=== PATIENT | female | born 1990 | race Caucasian/White ===

== ENCOUNTER 2021-12-24 11:18 | Emergency (ER) | payer SELFPAY ==
[~2021-12-24] VITALS: Ht 154.9 cm; Wt 68.9 kg
[2021-12-24 11:24] VITALS: BP 148/85
[2021-12-24 12:18] LABS: BASOPHILS # (AUTO) 0.1 K/uL (0.00-0.22); BASOPHILS % (AUTO) 0.9 % (0.0-2.0); EOSINOPHILS % (AUTO) 0.7 % (0.0-4.0); HEMATOCRIT 38.9 % (36-48); LYMPHOCYTES # (AUTO) 2.5 K/uL (2.5-16.5); LYMPHOCYTES % (AUTO) 39.6 % (20.5-51.1); MEAN CORPUSCULAR HEMOGLOBIN 29 pg (27-31); MEAN CORPUSCULAR HGB CONC 33 g/dL (33-37); MEAN CORPUSCULAR VOLUME 87.5 fL (80-94); MONOCYTES # (AUTO) 0.5 K/uL (0.8-1.0); MONOCYTES % (AUTO) 7.6 % (1.7-9.3); NEUTROPHILS # (AUTO) 3.2 K/uL (1.8-7.7); NEUTROPHILS % (AUTO) 51.2 % (42.2-75.2); PLATELET COUNT (AUTO) 278 K/uL (140-450); RED BLOOD CELL COUNT(AUTO) 4.45 MIL/uL (4.20-5.40); RED CELL DISTRIBUTION WIDTH 14.1 % (11.6-13.7); WHITE BLOOD COUNT (AUTO) 6.3 K/uL (4.8-10.8)
[2021-12-24] MEDS ORDERED: HYDR25CA10 PO (12:45)
[2021-12-24 12:51] LABS: ALBUMIN 4.3 g/dL (3.4-5.0); CARBON DIOXIDE 26.9 mmol/L (21-32); FREE T4 (FREE THYROXINE) 0.91 ng/dL (0.76-1.46); POTASSIUM 3.9 mmol/L (3.5-5.1); THYROID STIMULATING HORMONE 1.22 uIU/mL (0.34-3.74); TOTAL BILIRUBIN 0.8 mg/dL (0.0-1.0)
--- NOTE | 2021-12-24 13:00 | NUR ---
PATIENT STATES SHE HAS A HISTORY OF ANXIETY AND FEELS NUMBNESS IN HER FINGERS AND ABDOMINAL DISCOMFORT. PATIENT DENIES ANY NAUSEA, VOMITING OR DIARRHEA.
--- NOTE | 2021-12-24 13:15 | NUR ---
Patient discharged with v/s stable. Written and verbal after care instructions given and explained. Patient alert, oriented and verbalized understanding of instructions. Ambulatory with steady gait. All questions addressed prior to discharge. ID band removed. Patient advised to follow up with PMD. Rx of HYDROXYZINE given. Patient educated on indication of medication including possible reaction and side effects. Opportunity to ask questions provided and answered.
[2021-12-24 13:23] VITALS: BP 148/85
== END 2021-12-24 13:15 | disposition home or self-care (01) ==
LOC: MED 11:18
DX: F41.8 Other specified anxiety disorders (principal); E07.9 Disorder of thyroid, unspecified; Z79.899 Other long term (current) drug therapy
CPT/HCPCS: 36415; 71045; 80053; 81002; 81025; 84439; 84443; 85025; 93005; 99285; Q0092